=== PATIENT | female | born 2000 | race Caucasian/White ===

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

== ENCOUNTER → 2022-04-09 | Outpatient (CLI) | payer BC | LOC: HEART 5 15:00 | DX: R00.2 Palpitations (principal); I34.1 Nonrheumatic mitral (valve) prolapse ==